=== PATIENT | female | born 1990 | race Asian ===

== ENCOUNTER 2019-03-02 14:56 | Day surgery (SDC) | payer OTHER ==
[2019-03-02 15:34] VITALS: BP 119/67; TEMP 98.6; BMI 17.6
[2019-03-02] MEDS ORDERED: hydrALAZINE 20 MG/ML VIAL SLOW IVP PRN (15:45)
--- NOTE | 2019-03-02 15:47 | PDOC.LDHP ---
Labor and Delivery H&P Chief complaint: other (V/V this AM at 21 weeks) HPI: Patient of Dr Daniels Time: 1545 Location: Triage A 28 yo G1 at 21 weeks 5 days with N/V this AM...here for decreased FM. no VB, no RUQ pain, no LOF, no fever. Review of Systems: complete ROS completed and as per HPI Current gestational age (weeks): 21 (4D) Dating criteria: last menstrual period Grav: 1 Current complications: none Abnormal US findings: No Current medications: pre-randa vitamins, other (Diclegis) Previous surgical history: none Allergies/Adverse Reactions: Allergies Allergy/AdvReac Type Severity Reaction Status Date / Time No Known Allergies Allergy Unverified 03/02/19 15:34 Social history: none - Physical Exam Vital signs reviewed and normal: yes (119/67 98.6 18 93) General: NAD, resting Heart: RRR Abdomen: gravid Extremeties: no edema [place] contractions every: slight irritability - Assessment Decresaed FM at 21 weeks...likely EGA related. N/V HX. - Plan Plan: observation in L&D (FHTs wnl. CMP ordered.)
[2019-03-02 16:32] LABS: ALT (SGPT) 9 U/L (8-55); AST (SGOT) 14 U/L (5-34); Albumin 4.2 g/dL (3.5-5.0); Alkaline Phosphatase 58 U/L (40-110); Anion Gap 13 mmol/L (10-20); BUN (Urea Nitrogen) Less than 4 mg/dL (7.0-18.7); Bilirubin, Total 0.3 mg/dL (0.2-1.2); Calc. Creatinine Clearance 107 mL/min (70-130); Calcium 9.5 mg/dL (7.8-10.44); Carbon Dioxide 25 mmol/L (22-29); Chloride 103 mmol/L (98-107); Estimated GFR-MDRD Greater than 90; Globulin 3.2 g/dL (2.4-3.5); Glucose 80 mg/dL (70-105); Potassium 3.5 mmol/L (3.5-5.1); Protein, Total 7.4 g/dL (6.0-8.3); Sodium 137 mmol/L (136-145)
--- NOTE | 2019-03-02 16:34 | PDOC.EVN ---
Event Note - Event Note Event Note: CMP is normal ok for DC
== END 2019-03-02 16:56 | disposition home or self-care (01) ==
LOC: L&D/OP 14:56
PROVIDERS: ATTEND Obstetrics & Gynecology
DX: O36.8120 Decreased fetal movements, second trimester, not applicable or unspecified (principal); O21.2 Late vomiting of pregnancy; Z3A.21 21 weeks gestation of pregnancy; Z79.899 Other long term (current) drug therapy
CPT/HCPCS: 36415; 80053

== ENCOUNTER 2019-06-12 02:37 | Inpatient (IN) | payer MEDICAID, OTHER, SELFPAY ==
[2019-06-12 03:38] VITALS: BMI 19.5
[2019-06-12] MEDS ORDERED: Ibuprofen 800 MG TAB PO PRN (03:53)
[2019-06-12] MEDS ORDERED: NS / Oxytocin 40 units/1000ml 1,000 ML IV PRN (03:53)
[2019-06-12] MEDS ORDERED: Lidocaine 1% (PF) 30 ML VIAL SC PRN (03:53)
[2019-06-12] MEDS ORDERED: Ondansetron PF 4 MG/2 ML Vial IVP PRN ×3 (03:53→08:31)
[2019-06-12] MEDS ORDERED: Promethazine HCl 25 MG/ML VIAL IM PRN ×2 (03:53→05:28)
[2019-06-12] MEDS ORDERED: hydrALAZINE 20 MG/ML VIAL SLOW IVP PRN ×2 (03:53→08:31)
[2019-06-12] MEDS ORDERED: Penicillin G Potassium 5 MILL.UNITS VIAL ONE (04:01)
--- NOTE | 2019-06-12 04:11 | PDOC.FPROB ---
FMR OB H&P: HPI - History of Present Illness Chief Complaint: ROM Indentification: 28 y/o @ 36.2 WGA History of Present Illness: Presents with LOF that started around 2am. She reports that she woke up from sleep because of this and it was clear watery fluid. She reports ctx that started after she arrived to L&D that are every 5 minutes. She endorses movement. Denies vaginal bleeding. Primary Care Physician: Dr. Nolen FMR OB H&P: Current - Care : 1 Para: 0 Gestational age: 36.2 Course/Complications: A1GDM FOB: carrier for HBV (pt hep B immune) - OB Labs Blood type: A RH: positive Antibody Screen: negative HIV: negative RPR: negative HepBsAg: negative 1 hour gtt: 145 GBS: unknown FMR OB H&P: History - Past Medical History PMH: Denies - OB History OB History: G1 A1GDM during this - Surgical History Sx History: Denies - Social History Social History: Denies tobacco, etoh, drug use - Family History Family History: Noncontributory FMR OB H&P: Medications - Current Home Medications: Medication Instructions Recorded Confirmed Type Doxylamine Succinate/Vit B6 1 each PO DAILY 03/02/19 03/02/19 History [Bonjesta ER 20-20 mg Tablet] Pnv No.95/Ferrous Fum/Folic AC 1 each PO DAILY 03/02/19 03/02/19 History [ Formula] Allergies/Adverse Reactions: Allergies Allergy/AdvReac Type Severity Reaction Status Date / Time No Known Allergies Allergy Verified 06/12/19 03:32 FMR OB H&P: Vital Signs - Maternal Vital signs: BP 120/72, HR 80, O2 sat 100% on RA, Temp 98.0 - Heart Tones Baseline: 150 Variability: moderate Acceleration: absent Deceleration: absent Category: category 1 [place] contractions every: 5min FMR OB H&P: Physical Exam - Physical Exam General: NAD, awake, alert and oriented HEENT: normocephalic and atraumatic, MMM, conjunctiva clear, grossly normal vision, grossly normal hearing Neck: supple General: no respiratory distress Abdomen: soft, gravid Skin: good tugor Lymphatic: no unusual bruising or bleeding Psychiatric: intact recent and remote memory, good judgement and insight - Pelvic Exam SVE: /0 FMR OB H&P: A/P - Problem List (1) labor Current Visit: Yes Status: Acute Code(s): O60.00 - LABOR WITHOUT DELIVERY, UNSPECIFIED TRIMESTER Qualifiers: labor trimester: third trimester Fetus number: single or unspecified fetus Assessment and Plan: Pt with SROM, dilated to 6cm and romie -Admit to L&D -Penicillin G for GBS unknown and -Epidural as desired -Monitor FHT -Expectantly manage labor (2) Gestational diabetes mellitus in childbirth, diet controlled Current Visit: Yes Status: Acute Code(s): O24.420 - GESTATIONAL DIABETES MELLITUS IN CHILDBIRTH, DIET CONTROLLED Assessment and Plan: Will check glucose once Disposition: Admit to L&D and expectantly manage Discussion: Date/Time: 06/12/19 040 This H&P was discussed with Dr. King who agrees with the above documentation and plan. Signature: Elizabeth Hinojosa MD, PGY-3 Addendum - Attending - Attending Attestation Date/Time: 06/12/19 [id number] I personally evaluated the patient and discussed the management with Dr. Hinojosa. I agree with the History, Examination, Assessment and Plan documented above.
[2019-06-12] MEDS ORDERED: Lactated Ringer's 1,000 ML IV SCH (04:15)
[2019-06-12 04:29] LABS: Mean Corpuscular HGB CONC 34.5 g/dL (32.0-36.0); Mean Corpuscular Hemoglobin 31.8 pg (27.0-31.0); Mean Corpuscular Volume 92.1 fL (78.0-98.0); Mean Platelet Volume 9.1 fL (7.4-10.4); Platelet Count 250 thou/uL (130-400); RBC Distribution Width 12.5 % (11.5-14.5); Red Blood Cell (RBC) Count 4.09 mill/uL (4.20-5.40); White Blood Cell (WBC) Count 13.2 thou/uL (4.8-10.8)
[2019-06-12] MEDS ORDERED: Fentanyl 4 mcg/Bup 0.1% Cadd 100 ML ONE (04:29)
[2019-06-12] MEDS ORDERED: Penicillin G Potassium 5 MILL.UNITS in Sodium Chloride 0.9% 100 ML IVPB SCH (04:30)
[2019-06-12 04:45] LABS: Glucose 91 mg/dL (70-105)
[2019-06-12] MEDS ORDERED: Penicillin G 2.5 MILL.units 2.5 MILL.UNITS in Premix Bag 1 BAG IVPB SCH ×2 (05:00→08:00)
[2019-06-12 05:09] LABS: Hep B Surf Ag Non-Reactive S/CO (NonReactive)
[2019-06-12 05:15] LABS: Syphilis Antibody Nonreactive (Nonreactive); Syphilis Antibody Index 0.06 S/CO (<1.00 Non-Reactive)
[2019-06-12] MEDS ORDERED: EPHEDRINE 25 MG/5 ML SYRINGE SLOW IVP PRN (05:28)
[2019-06-12] MEDS ORDERED: Lactated Ringer's 500 ML IV PRN (05:28)
[2019-06-12] MEDS ORDERED: Acetaminophen 325 MG TAB PO PRN (05:28)
[2019-06-12] MEDS ORDERED: diphenhydrAMINE 50 MG/ML VIAL IVP PRN (05:28)
[2019-06-12] MEDS ORDERED: Naloxone HCl 0.4 mg/ml Vial IVP PRN ×2 (05:28)
[2019-06-12] MEDS ORDERED: Communication Order-Pharmacy FS SCH (05:30)
[2019-06-12] MEDS ORDERED: Fentanyl 4 mcg/Bupivacaine 0.1% Cassette 100 ML EPIDURAL SCH (05:30)
--- NOTE | 2019-06-12 08:08 | PDOC.OPDEL ---
OB Operative/Delivery Note Delivery Dr/Surgeon: Christine/Ashish Pre-Delivery Diagnosis: active labor Procedure/Post Delivery Dx: spontaneous vaginal delivery Weeks gestation: 36 Anesthesia: epidural - Additional Findings/Plan Placenta delivered: spontaneous Repaired Obstetrical Laceration: 2nd degree Estimated blood loss: 300 cc, QBL pending Compilations/Other Findings: Viable female Apgars 9/9 Placenta intact Lars 2# midline lac and small right vaginal lac repaired with 2-0 chromic. Mom and baby doing well. Post delivery plan: routine recovery
[2019-06-12] MEDS ORDERED: diphenhydrAMINE 25 MG CAP PO PRN (08:31)
[2019-06-12] MEDS ORDERED: Milk Of Magnesia 30 ML UDCUP PO PRN (08:31)
[2019-06-12] MEDS ORDERED: Bisacodyl 10 MG SUPP PR PRN (08:31)
[2019-06-12] MEDS ORDERED: NS / Oxytocin 40 units/1000ml 1,000 ML IV SCH (08:31)
[2019-06-12] MEDS ORDERED: Adacel (T-DAP) 0.5 ML SYRINGE IM ONE (08:31)
[2019-06-12] MEDS ORDERED: Bupivacaine 0.25% HCL 30 ML VIAL ONE (11:40)
[2019-06-12] MEDS: Docusate Calcium (SURFAK) 240 MG CAP PO SCH ×2 (11:43→21:38)
[2019-06-12] MEDS: Prenatal Vitamin 1 TAB PO SCH (11:43)
[2019-06-12] MEDS: Ibuprofen 800 MG TAB PO SCH ×2 (13:27→21:37)
[2019-06-12] MEDS: Ferrous Sulfate 325 MG TAB PO SCH (14:45)
[2019-06-13] MEDS ORDERED: Benzocaine-Menthol 82.5 ML CAN TOP PRN (07:22)
--- NOTE | 2019-06-13 07:22 | PDOC.PP ---
Post Progress Note Post Day #: 1 Subjective: NAEO. Doing well. Minimal lochia, some discomfort with urination due to laceration. No concerns otherwise. . PO intake tolerated: yes Flatus: yes Ambulation: yes Vital Signs (12 hours) Temp Pulse Resp BP Pulse Ox 06/12/19 20:00 98.3 F 83 18 99/53 L 98 Weight Weight 49.895 kg - Physical Examination General: NAD Respiratory: clear to auscultation bilaterally, non-labored breathing Abdominal: appropriately TTP Fundus firm & at: firm below umbilicus Perineum: hemostatic perineal incision with suture spresent Neurological: no gross focal deficits Psychiatric: A&Ox3, normal affect Result Diagrams: 06/12/19 04:03 06/12/19 04:03 Additional Labs: Post Labs Blood Type A POSITIVE 06/12/19 04:33 Hep Bs Antigen Non-Reactive S/CO (NonReactive) 06/12/19 04:03 - Assessment/Plan 28 yo s/p , PPD1 1. s/p , PPD with 2nd deg. perineal lac -Doing well, will add dermoplast and ditz baths to help with perineal lac -AVSS -Answered all questions -Continue Dispo: Likely d/c tmrw AM pending clinical course
[2019-06-13] MEDS: Docusate Calcium (SURFAK) 240 MG CAP PO SCH ×2 (08:21→23:58)
[2019-06-13] MEDS: Prenatal Vitamin 1 TAB PO SCH (08:22)
[2019-06-13] MEDS: Ferrous Sulfate 325 MG TAB PO SCH ×2 (08:23→16:08)
[2019-06-13] MEDS: Ibuprofen 800 MG TAB PO SCH ×3 (08:23→23:58)
[2019-06-14] MEDS: Ibuprofen 800 MG TAB PO SCH ×2 (06:41→18:14)
[2019-06-14 07:51] VITALS: BP 98/53; TEMP 98
[2019-06-14] MEDS: Docusate Calcium (SURFAK) 240 MG CAP PO SCH (07:53)
[2019-06-14] MEDS: Prenatal Vitamin 1 TAB PO SCH (07:53)
[2019-06-14] MEDS: Ferrous Sulfate 325 MG TAB PO SCH ×2 (07:54→18:14)
--- NOTE | 2019-06-14 11:10 | PDOC.PP ---
Post Progress Note Post Day #: 2 Subjective: Pt doing well. Minimal lochia. Pain controlled. Mom is breast feeding and working with mobile sales consultant. She has been up and ambulatory. She has mild vaginal discomfort from laceration. She is able to void with minimal discomfort. PO intake tolerated: yes Flatus: yes Ambulation: yes Vital Signs (12 hours) Temp Pulse Resp BP Pulse Ox 06/14/19 07:50 98.0 F 69 20 98/53 L 97 Weight Weight 110 lb - Physical Examination General: NAD Respiratory: non-labored breathing Abdominal: + bowel sounds, lochia, no distention, appropriately TTP Fundus firm & at: 1 cm below umbilicus Extremities: negative homans (B) Skin: no rash Neurological: no gross focal deficits Psychiatric: A&Ox3, normal affect Result Diagrams: 06/12/19 04:03 06/12/19 04:03 Additional Labs: Post Labs Blood Type A POSITIVE 06/12/19 04:33 Hep Bs Antigen Non-Reactive S/CO (NonReactive) 06/12/19 04:03 (1) Vaginal delivery Code(s): O80 - ENCOUNTER FOR FULL-TERM UNCOMPLICATED DELIVERY Status: Acute - Assessment/Plan Pt doing well on PPD2. VSS, afebrile. Baby is breast feeding well. Mom is working with consultation. WILIAN WNL. Plan for discharge this am. Mom will stay for bed/breakfast as baby will stay for additional day of phototherapy. She will follow up with out office in 6 weeks.
== END 2019-06-14 18:20 | disposition home or self-care (01) | DRG 807 ==
LOC: L&D/OP 02:37 → L&D 03:53 → 3SW 10:46
PROVIDERS: ADMIT Obstetrics & Gynecology; ATTEND Obstetrics & Gynecology
PROC: 10E0XZZ Delivery of Products of Conception, External Approach (ICD-10-PCS; principal; 2019-06-12)
PROC: 0KQM0ZZ Repair Perineum Muscle, Open Approach (ICD-10-PCS; 2019-06-12)
DX: O60.14X0 Preterm labor third trimester with preterm delivery third trimester, not applicable or unspecified (principal); Z37.0 Single live birth; Z3A.36 36 weeks gestation of pregnancy; O24.420 Gestational diabetes mellitus in childbirth, diet controlled; O70.1 Second degree perineal laceration during delivery
CPT/HCPCS: 36415; 51702; 82947; 85027; 86780; 86850; 86900; 86901; 87340; 99285; J2540; S0020